=== PATIENT | male | born 1935 | race Caucasian/White ===

== ENCOUNTER 2018-05-17 21:39 | Inpatient (IN) | payer MEDICARE, OTHER ==
[~2018-05-17] VITALS: Ht 170.2 cm; Wt 81.0 kg
[2018-05-17 22:33] LABS: BASOPHILS % (AUTO) 0.5 % (0-1); EOSINOPHILS # (AUTO) 0.3 X10'3 (0-0.9); EOSINOPHILS % (AUTO) 4.5 % (0-6); HEMATOCRIT 29.3 % (42.0-52.0); HEMOGLOBIN 9.9 g/dl (14.0-17.9); LYMPHOCYTES # (AUTO) 1.3 X10'3 (1.1-4.8); LYMPHOCYTES % (AUTO) 23.5 % (21-51); MEAN CORPUSCULAR HEMOGLOBIN 30.2 PG (27.0-31.0); MEAN CORPUSCULAR VOLUME 88.8 FL (78-98); MEAN PLATELET VOLUME 7.6 FL (7.4-10.4); MONOCYTES # (AUTO) 0.5 X10'3 (0-0.9); MONOCYTES % (AUTO) 9.4 % (2-12); NEUTROPHILS # (AUTO) 3.5 X10'3 (1.8-7.7); NEUTROPHILS % (AUTO) 62.1 % (42-75); PLATELET COUNT 187 X10'3 (140-440); RED CELL DISTRIBUTION WIDTH 14.1 % (11.5-14.5); WHITE BLOOD COUNT 5.6 X10'3 (4.5-11.0)
[2018-05-17 22:45] LABS: PARTIAL THROMBOPLASTIN TIME 27 SECONDS (22-32); PROTHROMBIN TIME 10.1 SECONDS (9.0-12.0)
[2018-05-17 22:50] LABS: ALANINE AMINOTRANSFERASE 15 U/L (12-78); ALBUMIN 2.9 G/DL (3.4-5.0); ALBUMIN/GLOBULIN RATIO 0.9 (1.1-1.5); ALKALINE PHOSPHATASE 107 IU/L (46-116); ANION GAP 8 (8-16); ASPARTATE AMINO TRANSFERASE 12 U/L (10-37); BILIRUBIN,TOTAL 0.2 MG/DL (0.1-1.0); BLOOD UREA NITROGEN 48 MG/DL (7-18); BUN/CREATININE RATIO 15.3 (5.4-32.0); CALCIUM 8.9 MG/DL (8.5-10.1); CHLORIDE 111 MMOL/L (99-107); CREATININE 3.14 MG/DL (0.60-1.10); GLUCOSE 98 MG/DL (70-104); POTASSIUM 5.6 MMOL/L (3.5-5.1); SODIUM 140 MMOL/L (135-145); TOTAL CARBON DIOXIDE 20.6 MMOL/L (24-32); TOTAL PROTEIN 6.2 G/DL (6.4-8.2); eGFR 19 ML/MIN
[2018-05-18] MEDS ORDERED: mag hydrox/Alum hydrox/simeth 30ml oral suspension PO PRN (00:45)
[2018-05-18] MEDS ORDERED: sodium polystyrene sulfonate 15gm/60ml oral suspension PO ONE (00:45)
[2018-05-18] MEDS ORDERED: ondansetron/PF 4mg/2ml inj IV PRN (00:45)
[2018-05-18] MEDS ORDERED: metoclopramide 5 mg/ml inj IV PRN (00:45)
[2018-05-18] MEDS ORDERED: diphenhydrAMINE 50 mg/ml inj IV PRN (00:45)
[2018-05-18] MEDS ORDERED: dextrose 50%-water 50ml dispensing syringe IV ONE (00:45)
[2018-05-18] MEDS ORDERED: albuterol 2.5 MG/3 ML nebule NEB ONE (00:45)
[2018-05-18] MEDS ORDERED: acetaminophen 650mg rectal suppository RC PRN (00:45)
[2018-05-18] MEDS ORDERED: sodium bicarbonate (8.4%) 1 mEq/ml syringe IV ONE (00:45)
[2018-05-18] MEDS ORDERED: acetaminophen 325mg tablet PO PRN ×2 (00:45)
[2018-05-18] MEDS ORDERED: furosemide 40mg/4ml inj IV SCH (00:45)
[2018-05-18] MEDS ORDERED: magnesium hydroxide 30ml (MOM) UD suspension PO PRN (00:45)
[2018-05-18] MEDS ORDERED: morphine 4 MG/ML inj SYRINge IV PRN ×2 (00:45)
[2018-05-18] MEDS ORDERED: insulin regular, human 10 units/0.1 ml syringe IV ONE (00:45)
[2018-05-18] MEDS ORDERED: bisacodyl 10mg suppository rectal RC PRN (00:45)
[2018-05-18] MEDS ORDERED: diphenhydrAMINE 25mg capsule PO PRN (00:45)
[2018-05-18] MEDS ORDERED: dextrose ORAL solution 15 GM/59 ML bottle PO PRN ×2 (00:50)
[2018-05-18] MEDS ORDERED: insulin Lispro (HumaLOG) vial - multi-dose SQ SCH (00:50)
[2018-05-18] MEDS ORDERED: dextrose 50%-water 50ml dispensing syringe IV PRN ×2 (00:50)
[2018-05-18] MEDS ORDERED: MESSAGE TO PHARMACY PO ONE (00:50)
[2018-05-18] MEDS ORDERED: glucagon, human recombinant 1mg kit SUBCUT PRN (00:50)
[2018-05-18 01:23] LABS: MAGNESIUM 2.3 MG/DL (1.5-2.4); PHOSPHORUS 3.7 MG/DL (2.3-4.5)
[2018-05-18 01:50] VITALS: BP 161/63
[2018-05-18] MEDS: normal saline 1000ml 1,000 ML IV SCH ×2 (02:03→10:45)
[2018-05-18] MEDS ORDERED: OLME40TA13 PO (04:56)
[2018-05-18 07:26] VITALS: BP 112/41
[2018-05-18] MEDS ORDERED: pantoprazole 40mg Tablet.DR PO SCH (07:30)
[2018-05-18] MEDS ORDERED: MESSAGE TO NURSING PO ONE (08:00)
[2018-05-18] MEDS ORDERED: heparin, porcine 5000 units/ml vial SQ SCH (08:00)
[2018-05-18] MEDS ORDERED: docusate sod 100mg capsule PO SCH (08:00)
[2018-05-18 09:02] LABS: ANION GAP 9 (8-16); BLOOD UREA NITROGEN 43 MG/DL (7-18); BUN/CREATININE RATIO 15.8 (5.4-32.0); CALCIUM 8.6 MG/DL (8.5-10.1); CHLORIDE 109 MMOL/L (99-107); CREATININE 2.73 MG/DL (0.60-1.10); GLUCOSE 122 MG/DL (70-104); POTASSIUM 4.3 MMOL/L (3.5-5.1); SODIUM 140 MMOL/L (135-145); TOTAL CARBON DIOXIDE 21.8 MMOL/L (24-32); eGFR 23 ML/MIN
[2018-05-18] MEDS ORDERED: ASPI-611 PO (09:10)
[2018-05-18] MEDS ORDERED: BRIM10DR2 RIGHTEYE (09:10)
[2018-05-18] MEDS ORDERED: DOCU-28 PO (09:15)
[2018-05-18] MEDS ORDERED: CLON-514 PO (09:15)
[2018-05-18] MEDS ORDERED: SENN-161 PO (09:15)
[2018-05-18] MEDS ORDERED: HYDR-4069 PO (16:36)
[2018-05-18 17:33] VITALS: BP 148/57
[2018-05-18] MEDS ORDERED: temazepam 15mg capsule PO PRN (21:00)
== END 2018-05-18 18:37 | disposition home or self-care (01) | DRG 641 ==
LOC: ER 21:40 → ED HOLD 05-18 00:45 → SUR 3N 05-18 01:32
PROVIDERS: ADMIT Family Medicine; ATTEND Internal Medicine
DX: E87.5 Hyperkalemia (principal); N17.9 Acute kidney failure, unspecified; N18.4 Chronic kidney disease, stage 4 (severe); E86.0 Dehydration; E11.22 Type 2 diabetes mellitus with diabetic chronic kidney disease; I12.9 Hypertensive chronic kidney disease with stage 1 through stage 4 chronic kidney disease, or unspecified chronic kidney disease; I25.10 Atherosclerotic heart disease of native coronary artery without angina pectoris; H26.9 Unspecified cataract; Z88.5 Allergy status to narcotic agent; Z88.0 Allergy status to penicillin; Z88.2 Allergy status to sulfonamides; Z88.8 Allergy status to other drugs, medicaments and biological substances; Z79.899 Other long term (current) drug therapy; Z95.1 Presence of aortocoronary bypass graft
CPT/HCPCS: 36415; 80048; 80053; 82948; 83036; 83735; 83880; 84100; 85025; 85610; 85730; 87070; 94760; 99285; J1644; J1815; J1940; J7030